=== PATIENT | male | born 1950 | race African-American/Black ===

== ENCOUNTER 2021-05-15 16:11 | Observation (INO) ==
[2021-05-15] MEDS ORDERED: SODIUM CHLORIDE 0.9% 1,000 ML IV STA (17:01)
[2021-05-15 17:22] LABS: Basophils % 1.3 % (0.0-0.8); Eosinophils # 0.1 10*3/uL (0.0-0.87); Eosinophils % 2.3 % (0.00-10.9); Hematocrit 29.2 VOL% (42.0-52.0); Hemoglobin 9.8 GM/DL (14.0-18.0); Immature Granulocytes % 0.3 %; Immature Granulocytes Absolute 0.01 #; Lymphocytes # 0.9 10*3/uL (1.4-4.0); Lymphocytes % 28.5 % (21.2-54.2); Mean Corpuscular HGB Conc 33.6 GM/DL (32-36); Mean Corpuscular Volume 94.2 FL (87-102); Mean Platelet Volume 10.1 FL (9.6-12.0); Monocytes % 14.2 % (1.7-12.7); Neutrophils % 53.4 % (38.7-73.9); Platelet Count 198 T/CUMM (130-400); Red Cell Distribution Width 13.4 % (9.3-17.3); White Blood Count 3.1 T/CUMM (4-12)
[2021-05-15 17:35] LABS: Albumin 2.3 G/DL (3.4-5.0); Calcium 8.4 MG/DL (8.5-10.1); Osmolality,Calculated 274.8 MOS/KG (273-304); Potassium 3.9 MMOL/L (3.5-5.1); Total Protein 8.2 G/DL (6.4-8.2)
[2021-05-15 18:40] LABS: Barbiturates Screen,Urine Negative (Negative); Benzodiazepines Screen,Urine Positive (Negative); Cannabinoid Screen,Urine Negative (Negative); Opiate Screen,Urine Negative (Negative); Phencyclidine Screen,Urine Negative (Negative)
[2021-05-15] MEDS ORDERED: ACETAMINOPHEN 325 MG TABLET PO PRN (20:15)
[2021-05-15] MEDS ORDERED: DEXTROSE 50% 25 GM/50 ML VIAL IV PRN (20:15)
[2021-05-15] MEDS ORDERED: ONDANSETRON 4 MG/2 ML VIAL IV PRN (20:15)
[2021-05-15] MEDS ORDERED: GLUCAGON 1 MG VIAL IM PRN (20:15)
[2021-05-15] MEDS ORDERED: cefTRIAXone 1,000 MG in SODIUM CHLORIDE 0.9% 100 ML IV SCH (20:30)
[2021-05-15] MEDS ORDERED: AZITHROMYCIN INJ 500 MG in SODIUM CHLORIDE 0.9% 250 ML IV SCH (21:00)
[2021-05-15] MEDS: carvediloL 6.25 MG TABLET PO SCH (21:55)
[2021-05-15] MEDS: ATORVASTATIN 80 MG TABLET PO SCH (21:55)
[2021-05-15] MEDS: traZODone 50 MG TABLET PO SCH (21:55)
[2021-05-15] MEDS: ENOXAPARIN 40 MG/0.4 ML SYRINGE SUBCUT SCH (21:56)
[2021-05-15] MEDS: LACTATED RINGERS 1,000 ML IV SCH (22:00)
[2021-05-16] MEDS: ALBUTEROL/IPRATROPIUM 3 ML NEB RESP TX SCH ×4 (01:04→20:26)
[2021-05-16 05:08] LABS: Basophils % 1.2 % (0.0-0.8); Eosinophils # 0.1 10*3/uL (0.0-0.87); Eosinophils % 2.1 % (0.00-10.9); Hematocrit 28.2 VOL% (42.0-52.0); Hemoglobin 9.6 GM/DL (14.0-18.0); Immature Granulocytes % 1.2 %; Immature Granulocytes Absolute 0.04 #; Lymphocytes # 1.1 10*3/uL (1.4-4.0); Lymphocytes % 33.5 % (21.2-54.2); Mean Corpuscular Volume 94.3 FL (87-102); Mean Platelet Volume 10.2 FL (9.6-12.0); Monocytes % 15.4 % (1.7-12.7); Neutrophils % 46.6 % (38.7-73.9); Platelet Count 201 T/CUMM (130-400); Red Blood Count 2.99 MC/CUMM (3.8-5.5); Red Cell Distribution Width 13.2 % (9.3-17.3); White Blood Count 3.4 T/CUMM (4-12)
[2021-05-16 05:33] LABS: Eosinophils 4 % (0-10); Hypochromasia 1+; Lymphocytes 36 % (20-55); Microcytosis 1+; Nucleated Red Blood Cells 1 (0-5); Platelet Estimate Adequate; Segmented Neutrophils 51 % (50-85); Total Cells Counted 100
[2021-05-16 05:50] LABS: Calcium 8.2 MG/DL (8.5-10.1); Osmolality,Calculated 278.5 MOS/KG (273-304); Potassium 4.2 MMOL/L (3.5-5.1); Risk Ratio 3.69; Thyroid Stimulating Hormone 0.683 uIU/ml (0.358-3.74); VLDL Cholesterol 10.8 MG/DL
[2021-05-16] MEDS: LACTATED RINGERS 1,000 ML IV SCH ×3 (05:50→20:50)
[2021-05-16] MEDS: CLOPIDOGREL 75 MG TABLET PO SCH (09:24)
[2021-05-16] MEDS: PANTOPRAZOLE 40 MG TABLET PO SCH (09:25)
[2021-05-16] MEDS: carvediloL 6.25 MG TABLET PO SCH ×2 (09:25→21:20)
[2021-05-16 17:04] LABS: Basophils % 0.7 % (0.0-0.8); Eosinophils % 0.7 % (0.00-10.9); Hematocrit 28.1 VOL% (42.0-52.0); Hemoglobin 9.7 GM/DL (14.0-18.0); Immature Granulocytes % 0.4 %; Immature Granulocytes Absolute 0.02 #; Lymphocytes # 0.9 10*3/uL (1.4-4.0); Lymphocytes % 16.8 % (21.2-54.2); Mean Corpuscular HGB Conc 34.5 GM/DL (32-36); Mean Corpuscular Volume 93.4 FL (87-102); Mean Platelet Volume 10.5 FL (9.6-12.0); Monocytes % 11.4 % (1.7-12.7); Platelet Count 194 T/CUMM (130-400); Red Blood Count 3.01 MC/CUMM (3.8-5.5); Red Cell Distribution Width 13.2 % (9.3-17.3); White Blood Count 5.4 T/CUMM (4-12)
[2021-05-16] MEDS: ATORVASTATIN 80 MG TABLET PO SCH (20:33)
[2021-05-16] MEDS: ENOXAPARIN 40 MG/0.4 ML SYRINGE SUBCUT SCH (20:33)
[2021-05-16] MEDS: traZODone 50 MG TABLET PO SCH (20:33)
[2021-05-17] MEDS: ALBUTEROL/IPRATROPIUM 3 ML NEB RESP TX SCH ×4 (00:04→19:55)
[2021-05-17] MEDS: LACTATED RINGERS 1,000 ML IV SCH ×2 (05:04→16:36)
[2021-05-17] MEDS ORDERED: FUROSEMIDE 40 MG TABLET PO SCH (09:00)
[2021-05-17] MEDS ORDERED: LOSARTAN 50 MG TABLET PO SCH (09:00)
[2021-05-17] MEDS: carvediloL 6.25 MG TABLET PO SCH ×2 (09:55→20:40)
[2021-05-17] MEDS: PANTOPRAZOLE 40 MG TABLET PO SCH (09:56)
[2021-05-17] MEDS: CLOPIDOGREL 75 MG TABLET PO SCH (09:56)
[2021-05-17] MEDS: LOSARTAN 50 MG TABLET PO SCH (09:56)
[2021-05-17] MEDS: FUROSEMIDE 20 MG TABLET PO SCH ×2 (09:57→16:35)
[2021-05-17] MEDS: ATORVASTATIN 80 MG TABLET PO SCH (20:40)
[2021-05-17] MEDS: traZODone 50 MG TABLET PO SCH (20:40)
[2021-05-17] MEDS: ENOXAPARIN 40 MG/0.4 ML SYRINGE SUBCUT SCH (20:40)
[2021-05-18] MEDS: ALBUTEROL/IPRATROPIUM 3 ML NEB RESP TX SCH ×4 (01:08→20:58)
[2021-05-18] MEDS: CLOPIDOGREL 75 MG TABLET PO SCH (09:35)
[2021-05-18] MEDS: carvediloL 3.125 MG TABLET PO SCH ×2 (09:36→20:49)
[2021-05-18] MEDS: FUROSEMIDE 20 MG TABLET PO SCH ×2 (09:36→17:09)
[2021-05-18] MEDS: PANTOPRAZOLE 40 MG TABLET PO SCH (09:36)
[2021-05-18] MEDS: LOSARTAN 25 MG TABLET PO SCH (09:36)
[2021-05-18] MEDS: carvediloL 6.25 MG TABLET PO SCH (10:28)
[2021-05-18] MEDS: LOSARTAN 50 MG TABLET PO SCH (10:33)
[2021-05-18] MEDS: LACTATED RINGERS 1,000 ML IV SCH (13:30)
[2021-05-18] MEDS: traZODone 50 MG TABLET PO SCH (20:49)
[2021-05-18] MEDS: ENOXAPARIN 40 MG/0.4 ML SYRINGE SUBCUT SCH (20:49)
[2021-05-18] MEDS: ATORVASTATIN 80 MG TABLET PO SCH (20:49)
[2021-05-19] MEDS: ALBUTEROL/IPRATROPIUM 3 ML NEB RESP TX SCH ×4 (01:25→20:17)
[2021-05-19] MEDS: PANTOPRAZOLE 40 MG TABLET PO SCH (09:19)
[2021-05-19] MEDS: carvediloL 3.125 MG TABLET PO SCH ×2 (09:19→20:28)
[2021-05-19] MEDS: FUROSEMIDE 20 MG TABLET PO SCH ×2 (09:19→15:42)
[2021-05-19] MEDS: LOSARTAN 25 MG TABLET PO SCH (09:19)
[2021-05-19] MEDS: CLOPIDOGREL 75 MG TABLET PO SCH (09:20)
[2021-05-19] MEDS: ENOXAPARIN 40 MG/0.4 ML SYRINGE SUBCUT SCH (20:28)
[2021-05-19] MEDS: ATORVASTATIN 80 MG TABLET PO SCH (20:28)
[2021-05-19] MEDS: traZODone 50 MG TABLET PO SCH (20:28)
[2021-05-19] MEDS: LACTATED RINGERS 1,000 ML IV SCH (23:55)
[2021-05-20] MEDS: ALBUTEROL/IPRATROPIUM 3 ML NEB RESP TX SCH ×4 (01:26→19:28)
[2021-05-20 04:47] LABS: Calcium 8.6 MG/DL (8.5-10.1); Osmolality,Calculated 279.4 MOS/KG (273-304); Potassium 4.3 MMOL/L (3.5-5.1)
[2021-05-20] MEDS: PANTOPRAZOLE 40 MG TABLET PO SCH (09:45)
[2021-05-20] MEDS: LOSARTAN 25 MG TABLET PO SCH (09:45)
[2021-05-20] MEDS: CLOPIDOGREL 75 MG TABLET PO SCH (09:45)
[2021-05-20] MEDS: FUROSEMIDE 20 MG TABLET PO SCH ×2 (09:45→15:19)
[2021-05-20] MEDS: carvediloL 3.125 MG TABLET PO SCH ×2 (09:45→20:23)
[2021-05-20] MEDS: LACTATED RINGERS 1,000 ML IV SCH (15:00)
[2021-05-20] MEDS: ATORVASTATIN 80 MG TABLET PO SCH (20:22)
[2021-05-20] MEDS: traZODone 50 MG TABLET PO SCH (20:22)
[2021-05-20] MEDS: ENOXAPARIN 40 MG/0.4 ML SYRINGE SUBCUT SCH (20:27)
[2021-05-21] MEDS: ALBUTEROL/IPRATROPIUM 3 ML NEB RESP TX SCH ×2 (00:51→07:38)
[2021-05-21 04:47] LABS: Calcium 8.7 MG/DL (8.5-10.1); Osmolality,Calculated 284.3 MOS/KG (273-304); Potassium 3.9 MMOL/L (3.5-5.1)
[2021-05-21] MEDS: carvediloL 3.125 MG TABLET PO SCH (09:25)
[2021-05-21] MEDS: FUROSEMIDE 20 MG TABLET PO SCH (09:25)
[2021-05-21] MEDS: CLOPIDOGREL 75 MG TABLET PO SCH (09:25)
[2021-05-21] MEDS: LOSARTAN 25 MG TABLET PO SCH (09:26)
[2021-05-21] MEDS: PANTOPRAZOLE 40 MG TABLET PO SCH (09:26)
[2021-05-21 11:48] VITALS: BP 95/52
== END 2021-05-21 12:53 | disposition home health service (06) ==
LOC: N.EDINP 16:11 → N.ED 16:11 → SUATTDRO 20:15 → N.EDINP 22:50 → N.4E 23:12
PROVIDERS: ADMIT Internal Medicine Geriatric Medicine; ATTEND Internal Medicine